=== PATIENT | male | born 1990 | race Caucasian/White ===

== ENCOUNTER 2016-09-11 13:59 | Emergency (ER) | payer SELFPAY | END 2016-09-11 16:36 | disposition home or self-care (01) | LOC: FER 13:59 | DX: S46.812A Strain of other muscles, fascia and tendons at shoulder and upper arm level, left arm, initial encounter (principal); I10 Essential (primary) hypertension; F17.210 Nicotine dependence, cigarettes, uncomplicated; Z88.2 Allergy status to sulfonamides; Z79.899 Other long term (current) drug therapy; Z98.890 Other specified postprocedural states; X50.0XXA Overexertion from strenuous movement or load, initial encounter; Y93.89 Activity, other specified; Y92.69 Other specified industrial and construction area as the place of occurrence of the external cause; Y99.0 Civilian activity done for income or pay | CPT/HCPCS: 73030; 99283 ==

== ENCOUNTER → 2020-12-29 | Day surgery (SDC) | payer OTHER ==
[~2020-12-29] VITALS: Ht 182.9 cm; Wt 96.6 kg
[~2020-12-29] MED LIST: ATIVAN0.5 MG PO; CARDIZEM CD120 MG PO; CYCLOBENZAPRINE10 MG PO; EPIDIOLEX100 MG/1 M PO; OMEPRAZOLE 20MG20 MG PO; PERCOCET 5-3251 EACH PO; PROTONIX 40MG T40 MG PO; TOPROL XL 25MG25 MG PO; TOPROL XL 50 MG50 MG PO
[2020-12-29 11:04] LABS: ALBUMIN 4.8 g/dL (3.4-5.0); BILIRUBIN - TOTAL 1.4 mg/dL (0.2-1.0); BUN/CREAT RATIO (CALC) 17.2 RATIO; CREATININE 0.93 mg/dL (0.67-1.17); GLOBULIN (CALCULATION) 3.4 g/dL; POTASSIUM 3.6 mmol/L (3.5-5.1); TOTAL PROTEIN 8.2 g/dL (6.4-8.2)
== END | disposition home or self-care (01) ==
LOC: FAS 09:18
PROVIDERS: Surgery
DX: K29.70 Gastritis, unspecified, without bleeding (principal); K25.9 Gastric ulcer, unspecified as acute or chronic, without hemorrhage or perforation; K31.9 Disease of stomach and duodenum, unspecified; K21.9 Gastro-esophageal reflux disease without esophagitis; K44.9 Diaphragmatic hernia without obstruction or gangrene; R10.30 Lower abdominal pain, unspecified; R19.4 Change in bowel habit; M25.511 Pain in right shoulder; M25.512 Pain in left shoulder; K82.4 Cholesterolosis of gallbladder; I10 Essential (primary) hypertension; R55 Syncope and collapse; R00.2 Palpitations; Z88.1 Allergy status to other antibiotic agents; F17.210 Nicotine dependence, cigarettes, uncomplicated; F41.9 Anxiety disorder, unspecified; R79.89 Other specified abnormal findings of blood chemistry
CPT/HCPCS: 36415; 80053; 82150; 83690; J2250; J2704; J7120

== ENCOUNTER → 2021-03-03 | Day surgery (SDC) | payer OTHER ==
[~2021-03-03] VITALS: Ht 182.9 cm; Wt 95.2 kg
== END | disposition home or self-care (01) ==
LOC: FAS 07:47
DX: K81.1 Chronic cholecystitis (principal); R16.1 Splenomegaly, not elsewhere classified; K21.9 Gastro-esophageal reflux disease without esophagitis; I10 Essential (primary) hypertension; F41.9 Anxiety disorder, unspecified; Z88.2 Allergy status to sulfonamides; Z88.1 Allergy status to other antibiotic agents; Z87.891 Personal history of nicotine dependence; Z79.899 Other long term (current) drug therapy
CPT/HCPCS: J0295; J1100; J1170; J2250; J2405; J2704; J3010; J7120

== ENCOUNTER 2021-03-05 10:30 | Emergency (ER) | payer OTHER ==
[2021-03-05 12:46] LABS: BASOPHIL 0.6 % (0-2); EOSINOPHIL 0.6 % (0-5); HCT 40.8 % (42.0-52.0); HGB 14.4 g/dl (13.2-18.0); LYMPHOCYTE 22.6 % (15-48); MCH 30.3 pg (25.0-31.0); MCHC 35.3 g/dL (32.0-36.0); MCV 85.9 fL (78.0-100.0); MONOCYTE 9.5 % (0-12); MPV 10.5 fL (6.0-9.5); NEUTROPHIL 66.4 % (41-80); NRBC 0; PLT 192 K/uL (150-400); RBC 4.75 M/uL (4.70-6.00); RDW 11.9 % (11.5-14.0); WBC 7.3 K/uL (4.0-10.5)
[2021-03-05 13:09] LABS: ALBUMIN 4.1 g/dL (3.4-5.0); BILIRUBIN - TOTAL 1.4 mg/dL (0.2-1.0); BUN/CREAT RATIO (CALC) 15.1 RATIO; CREATININE 0.86 mg/dL (0.67-1.17); GLOBULIN (CALCULATION) 2.9 g/dL; POTASSIUM 3.6 mmol/L (3.5-5.1)
== END 2021-03-05 17:31 | disposition home or self-care (01) ==
LOC: FER 10:30
PROVIDERS: Physician Assistant
DX: G89.18 Other acute postprocedural pain (principal); R10.9 Unspecified abdominal pain; K21.9 Gastro-esophageal reflux disease without esophagitis; Z90.49 Acquired absence of other specified parts of digestive tract; Z88.1 Allergy status to other antibiotic agents
CPT/HCPCS: 36415; 71045; 80053; 84484; 85025; J7030; Q9967